=== PATIENT | male | born 1945 | race Caucasian/White ===

== ENCOUNTER 2017-03-22 06:07 | Day surgery (SDC) | payer MEDICARE ==
[2017-03-15 15:25] VITALS: BMI 33.0
[~2017-03-22 06:07] MED LIST: LACTATED RINGERS 1,000 ML IV SCH; SODIUM CHLORIDE 0.9% 1,000 ML IV SCH
[2017-03-22 06:44] VITALS: PULSE 58; RESP 20; TEMP 97.7
[2017-03-22 06:51] LABS: INR 2.4 (<1.2); Prothrombin Time 21.6 sec (9.0-12.0)
[2017-03-22] MEDS ORDERED: PROPOFOL 10 MG/ML 20 ML VIAL IV ONE (07:14)
--- NOTE | 2017-03-22 08:12 | P.PCN ---
Preoperative Diagnosis: ICD interrogation with reprogramming ICD was interrogated P waves 3.7 mV atrial pacing impedance 400 ohms atrial pacing threshold 0.5 V at 0.5 ms. R waves 11.7 mV ventricular pacing impedance 501 ohms and pacing threshold 0.8 V at 0.5 ms. Shocking impedance 83 ohms DFT testing and anesthesia A shock on T-wave protocol was used to induce ventricular fibrillation. This was adequately and appropriately detected at least sensitivity. An 11 J shock was unsuccessful this time in regular polarity did at 21 J shock was successfully defibrillated the patient to sinus rhythm Charge time 3.6 seconds, shocking impedance 69 ohms initial polarity no post shock noise At the last evaluation is DFT was 11 J or below ICD interrogation with reprogramming ICD was reprogrammed appropriately with first cardioversion at 21 J and first defibrillation at 31 J and appropriate antitachycardia pacing. MADIT RIT parameters programmed Plan Recheck BMP today Increase metoprolol succinate to 150 mrem by mouth daily and reduce amlodipine to 2.5 mrem daily I'll of Dr. Khan in 6 weeks and follow-up in the device clinic in 4 months Disposition: same day
[2017-03-22 08:24] LABS: Anion Gap 7 mmol/L; Blood Urea Nitrogen 35 mg/dL (9-20); Calcium 8.9 mg/dL (8.4-10.2); Carbon Dioxide 23 mmol/L (22-30); Chloride 111 mmol/L (98-107); Glucose 100 mg/dL (74-99); Sodium 141 mmol/L (137-145)
[2017-03-22 09:24] VITALS: BP 151/83
== END 2017-03-22 09:24 | disposition home or self-care (01) ==
LOC: CATHEP 06:07
PROVIDERS: ATTEND Internal Medicine Clinical Cardiac Electrophysiology
DX: Z45.02 Encounter for adjustment and management of automatic implantable cardiac defibrillator (principal); I11.9 Hypertensive heart disease without heart failure; I42.9 Cardiomyopathy, unspecified; I49.01 Ventricular fibrillation; I48.1 Persistent atrial fibrillation; E78.5 Hyperlipidemia, unspecified; G47.33 Obstructive sleep apnea (adult) (pediatric); Z99.89 Dependence on other enabling machines and devices; Z87.442 Personal history of urinary calculi; Z79.01 Long term (current) use of anticoagulants; Z79.899 Other long term (current) drug therapy; Z88.8 Allergy status to other drugs, medicaments and biological substances
CPT/HCPCS: 93642; 80048; 85610; J2704

== ENCOUNTER → 2018-03-30 | Day surgery (SDC) | payer MEDICARE ==
[2018-03-28 11:58] VITALS: BMI 34.5
[~2018-03-30] MED LIST changes: -LACTATED RINGERS 1,000 ML IV SCH; +LIDOCAINE 1% INJ 10MG/ML (20 ML MDV) ONE; +PROPOFOL 10 MG/ML 20 ML VIAL IV ONE
[2018-03-30 07:15] VITALS: RESP 18; TEMP 97.7
[2018-03-30 07:40] LABS: INR 2.6 (<1.2); Prothrombin Time 24.8 sec (9.0-12.0)
--- NOTE | 2018-03-30 08:23 | PCN ---
PROCEDURE NOTE Mr. Russo is a 72-year-old male patient who has nonischemic cardiomyopathy with noncompaction cardiomyopathy and sustained a cardiac arrest with VF and hence the ICD was placed. Ejection fraction was reduced. Initial implant at DFT was at 11 joules. Subsequently, last year the DFT was noted to be at 21 joules while the 11 joules failed. He was brought in again for DFT testing after a year to see if there was any change in his defibrillation level. He has a [employer] device. This is a [employer] ICD D153, serial #[id number], adequate battery life and the P waves at 3 mV. Pacing impedance in the atrium is 410 ohms, pacing threshold 0.6 V at 0.5 milliseconds. The RV pacing threshold is 0.7 V at 0.5 milliseconds, pacing impedance of 519 ohms and R-wave 15 mV. Shocking impedance 82 ohms. Shock and T-wave protocol was used to induce ventricular fibrillation. This was adequately and appropriately detected at least sensitivity but a 14 joule shock failed. Charge time 2.4 seconds. Shocking impedance 72 ohms in initial polarity. Subsequently a 21 joule shock was successful. Charge time of 3.5 seconds. Shocking impedance 70 ohms initial polarity. No post shock noise. IMPRESSION: DFT stable but at 21 joules, last year the 11 joule failed; this year 14 joule shock failed. SUGGEST: Continue heart failure medications. The patient is also on amiodarone. This is most likely the effect of amiodarone even though it is a very low dose and it is quite likely that amiodarone is contributing to this elevation DFT, even though it is at a low dose of 100 mg a day and he has not had any ventricular arrhythmias or VF. Metoprolol succinate, spironolactone and losartan will be continued. The patient is allergic to ATORVASTATIN. MMODL / IJN: [id number] /
[2018-03-30 09:02] VITALS: PULSE 50
[2018-03-30 09:04] VITALS: BP 125/84
== END | disposition home or self-care (01) ==
LOC: CATHEP 06:11
PROVIDERS: ATTEND Internal Medicine Clinical Cardiac Electrophysiology
DX: I42.8 Other cardiomyopathies (principal); Z45.02 Encounter for adjustment and management of automatic implantable cardiac defibrillator; Z86.74 Personal history of sudden cardiac arrest; I49.01 Ventricular fibrillation; I11.0 Hypertensive heart disease with heart failure; I50.9 Heart failure, unspecified; E78.5 Hyperlipidemia, unspecified; I49.9 Cardiac arrhythmia, unspecified; I48.1 Persistent atrial fibrillation; Z79.01 Long term (current) use of anticoagulants; Z79.899 Other long term (current) drug therapy; Z88.8 Allergy status to other drugs, medicaments and biological substances
CPT/HCPCS: 93642; 85610; J2001; J2704

== ENCOUNTER 2018-12-11 06:25 | Emergency (ER) | payer MEDICARE ==
[2018-12-11] MEDS ORDERED: LIDOCAINE/EPINEPHR/TETRACAINE 5 ML BOTTLE TOPICAL ONE (06:28)
[2018-12-11] MEDS ORDERED: OXYMETAZOLINE 0.05% NASL SPRAY 1 SPRAY BOTTLE NASAL STA (06:28)
[2018-12-11 06:35] VITALS: RESP 18
[2018-12-11] MEDS: SILVER NITRATE APPLICATOR 1 EACH STICK..EA. TOPICAL STA ×2 (06:39→07:43)
--- NOTE | 2018-12-11 06:59 | ED ---
ENT HPI - General Chief complaint: ENT Stated complaint: Spontaneous Nose Bleed Time Seen by Provider: 12/11/18 06:28 Source: patient, RN notes reviewed, old records reviewed Mode of arrival: ambulatory Limitations: no limitations - History of Present Illness Initial comments: Patient is a 73-year-old male presents emergency room today for evaluation for nosebleed. Symptoms started approximately one hour ago. Patient reports he is on Coumadin for history of A. fib. Patient reports that his sore throat and some upper respiratory symptoms yesterday. Patient denies any specific fevers or chills. He states his Coumadin levels last checked on the of this month. Patient states that he's had some swallowing of blood. - Related Data Home Medications Medication Instructions Recorded Confirmed Losartan [Cozaar] 50 mg PO DAILY 10/04/14 03/30/18 Timolol 0.5% Ophth Soln [Timoptic 1 drop BOTH EYES QAM 10/04/14 03/28/18 0.5% Ophth Soln] Warfarin [Coumadin] 7.5 mg PO DIRECTED 10/04/14 03/30/18 Amiodarone [Cordarone] 100 mg PO DAILY 01/16/15 03/30/18 Metoprolol Succinate [Toprol XL] 100 mg PO DAILY 03/28/18 03/30/18 Warfarin Sodium [Coumadin] 3.75 mg PO DIRECTED 03/28/18 03/30/18 Previous Rx's Medication Instructions Recorded Spironolactone [Aldactone] 25 mg PO DAILY #30 tab 11/28/14 amLODIPine [Norvasc] 2.5 mg PO DAILY #30 tablet 03/22/17 Sodium Chloride [Saline Nasal 1 spray EA NOSTRIL TID #1 bottle 12/11/18 Meredith] Allergies Allergy/AdvReac Type Severity Reaction Status Date / Time rivaroxaban [From Xarelto] Allergy Rash/Hives Verified 12/11/18 06:35 atorvastatin [From Lipitor] AdvReac Unknown Verified 12/11/18 06:35 Review of Systems ROS Statement: Those systems with pertinent positive or pertinent negative responses have been documented in the HPI. ROS Other: All systems not noted in ROS Statement are negative. Past Medical History Past Medical History: Cancer, Osteoarthritis (OA), Pneumonia, Prostate Disorder, Sleep Apnea/CPAP/BIPAP Additional Past Medical History / Comment(s): BACK PAIN, HX OF KIDNEY STONES, RT ARM -BASAL CELL CANCER, SEE Dr King H & P. History of Any Multi-Drug Resistant Organisms: None Reported Past Surgical History: AICD, Cardiac Ablation, Hernia Repair, Joint Replacement, Orthopedic Surgery, Tonsillectomy Additional Past Surgical History / Comment(s): HARI KNEE AND HIP REPLACEMENTS, INGUINAL HERNIA, KIDNEY STONES,BLADDER STONES,CARPAL TUNNEL RT HAND 12-12-14 DUAL CHAMBER DEFIBRILLATOR IMPLANTED-,cardiac ablation x2,RK hari eyes Past Anesthesia/Blood Transfusion Reactions: Motion Sickness Additional Past Anesthesia/Blood Transfusion Reaction / Comment(s): STATES VERY SENSITIVE TO MEDICATION. Type of Cardiac Device: AICD Device Placement Date:: 2014 [employer] Past Psychological History: No Psychological Hx Reported Smoking Status: Former smoker Past Alcohol Use History: None Reported Past Drug Use History: None Reported - Past Family History Mother History Unknown: Yes Family Medical History: Hypertension Father History Unknown: Yes Family Medical History: CVA/TIA, Myocardial Infarction (DE) General Exam - General Exam Comments Initial Comments: 73-year-old male. Alert and oriented. Limitations: no limitations General appearance: alert, in no apparent distress Head exam: Present: atraumatic, normocephalic, normal inspection Eye exam: Present: normal appearance, PERRL, EOMI. Absent: scleral icterus, conjunctival injection, periorbital swelling ENT exam: Present: normal exam, normal oropharynx, mucous membranes moist, TM's normal bilaterally, other (Patient has any evidence of anterior epistaxis from the left nare. ) Neck exam: Present: normal inspection, other (No bleeding in posterior oropharynx.). Absent: tenderness, meningismus, lymphadenopathy Respiratory exam: Present: normal lung sounds bilaterally. Absent: respiratory distress, wheezes, rales, rhonchi, stridor Cardiovascular Exam: Present: regular rate, normal rhythm, normal heart sounds. Absent: systolic murmur, diastolic murmur, rubs, gallop, clicks GI/Abdominal exam: Present: soft, normal bowel sounds. Absent: distended, tenderness, guarding, rebound, rigid Back exam: Present: normal inspection Neurological exam: Present: alert, oriented X3, CN II-XII intact Psychiatric exam: Present: normal affect, normal mood Skin exam: Present: warm, dry, intact, normal color. Absent: rash Course Vital Signs 10/28/19 06:33 Temperature 97.7 F Pulse Rate 59 L Respiratory 18 Rate Blood Pressure 143/94 O2 Sat by Pulse 99 Oximetry Medical Decision Making - Medical Decision Making Patient 73-year-old male history of spontaneous nosebleed from the left near. Arriving to the ED at since slowed down but did complaint of some anterior epistaxis continuing. Apply lidocaine with epinephrine, Afrin sprays. Patient did have a small anterior nosebleed, he has nasal cautery with silver nitrate. We did check labs. Hemoglobin is stable 13.5. His INR is within normal limits of 2.5. Discussed taking Coumadin. After silver nitrate is applied Patient was monitored in the ER for 30 minutes. No further nosebleeds. Discussed using nasal saline spray, and antibiotic ointment over the nares. I discussed Patient can follow-up with primary care doctor. All questions are answered. - Lab Data Result diagrams: 12/11/18 07:04 Lab Results 12/11/18 12/11/18 Range/Units 07:04 07:04 WBC 9.8 (3.8-10.6) k/uL RBC 4.60 (4.30-5.90) m/uL Hgb 13.5 (13.0-17.5) gm/dL Hct 39.8 (39.0-53.0) % MCV 86.4 (80.0-100.0) fL MCH 29.4 (25.0-35.0) pg MCHC 34.1 (31.0-37.0) g/dL RDW 13.6 (11.5-15.5) % Plt Count 237 (150-450) k/uL Neutrophils % 76 % Lymphocytes % 14 % Monocytes % 7 % Eosinophils % 2 % Basophils % 1 % Neutrophils # 7.4 (1.3-7.7) k/uL Lymphocytes # 1.3 (1.0-4.8) k/uL Monocytes # 0.7 (0-1.0) k/uL Eosinophils # 0.2 (0-0.7) k/uL Basophils # 0.1 (0-0.2) k/uL PT 24.6 H (9.0-12.0) sec INR 2.5 H (<1.2) APTT 37.8 H (22.0-30.0) sec Disposition Clinical Impression: Anterior epistaxis Disposition: HOME SELF-CARE Condition: Good Instructions (If sedation given, give patient instructions): Nosebleed (ED) Additional Instructions: Please use medication as discussed. If any further nosebleeds starts, use the nasal spray, and use the nasal clamp for 30 minutes. Please follow up with family doctor if symptoms have not improved over the next two days. Please return to the emergency room if your symptoms increase or worsen or for any other concerns. Prescriptions: Sodium Chloride [Saline Nasal Meredith] 1 spray EA NOSTRIL TID #1 bottle Is patient prescribed a controlled substance at d/c from ED?: No Referrals: Josias Higgins MD [Primary Care Provider] - 1-2 days Abner Reyna DO [Doctor of Osteopathic Medicine] - 1-2 days Time of Disposition: 07:48
[2018-12-11 07:13] LABS: Basophils # (A) 0.1 k/uL (0-0.2); Basophils % (A) 1 %; Eosinophils # (A) 0.2 k/uL (0-0.7); Eosinophils % (A) 2 %; HCT 39.8 % (39.0-53.0); HGB 13.5 gm/dL (13.0-17.5); Lymphocytes # (A) 1.3 k/uL (1.0-4.8); Lymphocytes % (A) 14 %; MCH 29.4 pg (25.0-35.0); MCHC 34.1 g/dL (31.0-37.0); MCV 86.4 fL (80.0-100.0); Mean Platelet Volume 5.9; Monocytes # (A) 0.7 k/uL (0-1.0); Monocytes % (A) 7 %; Neutrophils # (A) 7.4 k/uL (1.3-7.7); Neutrophils % (A) 76 %; Platelet Count 237 k/uL (150-450); RDW 13.6 % (11.5-15.5); WBC 9.8 k/uL (3.8-10.6)
[2018-12-11 07:22] LABS: INR 2.5 (<1.2); Partial Thromboplastin Time 37.8 sec (22.0-30.0); Prothrombin Time 24.6 sec (9.0-12.0)
[2018-12-11 08:29] VITALS: BP 139/79; PULSE 71; TEMP 98
== END 2018-12-11 08:29 | disposition home or self-care (01) ==
LOC: EC 06:25
DX: R04.0 Epistaxis (principal); I48.91 Unspecified atrial fibrillation; G47.30 Sleep apnea, unspecified; Z79.01 Long term (current) use of anticoagulants; Z79.899 Other long term (current) drug therapy; Z88.8 Allergy status to other drugs, medicaments and biological substances; Z85.828 Personal history of other malignant neoplasm of skin; Z99.89 Dependence on other enabling machines and devices; Z96.653 Presence of artificial knee joint, bilateral; Z87.891 Personal history of nicotine dependence; Z96.643 Presence of artificial hip joint, bilateral; Z95.810 Presence of automatic (implantable) cardiac defibrillator
CPT/HCPCS: 30901; 36415; 85025; 85610; 85730; 99284

== ENCOUNTER → 2020-07-22 | Outpatient (CLI) | payer MEDICARE | CPT/HCPCS: 94060; 94726; 94729 ==

== ENCOUNTER → 2021-08-10 | Outpatient (CLI) | payer MEDICARE ==
--- NOTE | 2021-08-10 15:55 | US ---
EXAMINATION TYPE: US kidneys/renal and bladder DATE OF EXAM: 08/10/2021 COMPARISON: NONE CLINICAL HISTORY: R31.0 GROSS HEMATURIA. Hematuria EXAM MEASUREMENTS: Right Kidney: 11.0 x 5.7 x 5.3 cm Left Kidney: 11.3 x 5.1 x 5.8 cm Right Kidney: 2 simple appearing cysts seen in kidney. Largest was in superior pole measuring 4.3 x 5 .0 x 3.9 cm. Left Kidney: 2 simple appearing cysts seen in kidney. Largest was in superior pole measuring 3.4 x 3. 5 x 2.9 cm Bladder: Echogenic foci seen measuring 1.8 x 1.6 x 0.8 cm Bilateral Jets seen: No Prostate was seen measuring 6.3 x 5.8 x 4.7 cm IMPRESSION: 1. Urinary bladder calcification. 2. Simple appearing bilateral renal cysts.
== END | disposition home or self-care (01) ==
LOC: RADUSWWP 14:06
PROVIDERS: ATTEND Urology
DX: N28.1 Cyst of kidney, acquired (principal); N32.89 Other specified disorders of bladder
CPT/HCPCS: 76770

== ENCOUNTER → 2021-11-23 | Outpatient (CLI) | payer MEDICARE ==
[2021-11-23 09:27] LABS: INR 1.1 (<1.2); Prothrombin Time 11.7 sec (9.0-12.0)
[2021-11-23 15:16] LABS: Basophils # (A) 0.04 X 10*3/uL (0.00-0.10); Basophils % (A) 0.5 %; Eosinophils # (A) 0.07 X 10*3/uL (0.04-0.35); Eosinophils % (A) 0.8 %; HCT 44.7 % (39.6-50.0); HGB 14.6 g/dL (13.0-17.0); Immature Grans, Automated 0.4 %; Lymphocytes # (A) 2.45 X 10*3/uL (0.90-5.00); Lymphocytes % (A) 29.7 %; MCH 28.5 pg (27.0-32.0); MCHC 32.7 g/dL (32.0-37.0); MCV 87.1 fL (80.0-97.0); Mean Platelet Volume 9.6 fL (9.5-12.2); Monocytes # (A) 0.71 X 10*3/uL (0.20-1.00); Monocytes % (A) 8.6 %; NRBC Per 100 WBC 0 /100 WBCS (0.0-0.0); Neutrophils # (A) 4.94 X 10*3/uL (1.80-7.70); Platelet Count 251 X 10*3/uL (140-440); RBC 5.13 X 10*6/uL (4.40-5.60); RDW 13.1 % (11.5-14.5); WBC 8.24 X 10*3/uL (4.50-10.00)
[2021-11-23 15:26] LABS: ALT 14 U/L (10-49); AST 20 U/L (14-35); African American GFR (CKD) 64.1 (60.0-200.0); Albumin 4.5 g/dL (3.8-4.9); Alkaline Phosphatase 109 U/L (41-126); BUN/Creat Ratio 19.52 Ratio (12.00-20.00); Blood Urea Nitrogen 24.2 mg/dL (9.0-27.0); Calcium 9.4 mg/dL (8.7-10.3); Carbon Dioxide 24.4 mmol/L (20.0-27.5); Chloride 104 mmol/L (96-109); Chol/HDL Ratio 7.51 Ratio; Globulin 2.6 g/dL (1.6-3.3); Glucose 99 mg/dL (70-110); LDL Cholesterol,Calculated 217.2 mg/dL (0.0-131.0); Non-African American GFR(CKD) 55.3 (60.0-200.0); Potassium 4.2 mmol/L (3.5-5.5); Sodium 140 mmol/L (135-145); Total Protein 7.1 g/dL (6.2-8.2)
== END | disposition home or self-care (01) ==
LOC: LABWHC1 08:39
PROVIDERS: ATTEND Internal Medicine
DX: I48.0 Paroxysmal atrial fibrillation (principal)
CPT/HCPCS: 36415; 80053; 80061; 84443; 85025; 85610

== ENCOUNTER 2024-08-06 19:40 | Outpatient (CLI) | payer MEDICARE ==
--- NOTE | 2024-08-14 14:16 | P.PCN ---
Date of Procedure: 08/06/24 Operative Findings: Polysomnography report History This is a case of obstructive sleep apnea, mild to moderate in severity based on a previous sleep study that was done in 2012 and the patient was found to have an AHI of 50. The patient was successfully treated with BiPAP and the patient has a VPAP auto machine. The patient has an extensive cardiac history, nonischemic cardiomyopathy, A-fib and the patient has a defibrillator in place and the patient is postcardiac arrest. The patient has been successfully treated in the past and during his last visit, we noted some residual obstructive and central events while being on a BiPAP. Note that at that time, he was in the EPAP minimum of 4 and a maximum pressure of 14 and a pressure support of 30. Based on that, I dropped the maximum pressure down to 12 due to concerns of evaluation of central apneas. I also moved his pressure support up to 4. His compliance data showed that the patient has been averaging pressures of 11.7/7.2 and a leak of 50 L/min with a minute ventilation of 7.4 and a tidal volume of 450. However, his AHI was still elevated at 22 with a central apnea index of 0.2. He obviously started having increasing obstructive respiratory events with the pressure change. I subsequently, changed his settings and he was started on a EPAP minimum of 4 and a maximum of 18 and a pressure support of 4. With this current setting, the patient was averaging around 6.7 hours of machine use per night and his 95th percentile pressures were 13.9/9.3 with a leak of 40 L/min and a tidal volume of 450 and a minute ventilation of 6.9. Nevertheless, his AHI remains elevated at 18.6 with a central apnea index of 30. In the interim, the patient's cardiac rhythm has remained paced and his CHF has been optimized. He has been losing weight and his weight was down to 208 pounds with a body mass index of 29.8. He felt that the BiPAP pressures were quite high and affecting his ability to tolerate the treatment. Based on all this, I requested a reevaluation and based on that, the patient is coming in for another polysomnography Physical findings The weight is 208 with a body mass index of 29.8 Technical description The patient was studied using a standard complex polysomnography protocol that included recording of the Lead II EKG, Central, occipital and frontal EEG, right and left outer canthus EOG, submental EMG, right and left anterior tibialis EMG, respiratory airflow by thermocouple and or pressure/flow transducer, respiratory efforts by abdominal and thoracic PVDF belts, oxygen saturation by cable oximetry. Position by observation synchronized the PSG. Equipment used: [employer]. Sleep architecture The total recording duration was 422.5 minutes. The total sleep time was 261.5 minutes. The wake after sleep onset time was 133 minutes. The overall sleep efficiency was 61.9%. Related to sleep onset was 27.5 minutes and the sleep architecture was catheterized by 28.9% stage I, 64.8% stage II, 0% stage III and a total of 6.3% REM sleep. The total arousal index was 18.1 Respiratory analysis The patient had a total of 220 obstructive events of which 65 were obstructive, 0 were mixed and 155 were hypopneas. The resulting apnea hypopnea index was elevated at 49.3 consistent with severe obstructive sleep apnea. Note that, the recording was done essentially patient being in a nonsupine body position. The patient also encountered the brief REM. No central apneas were noted. Oxygenation analysis The patient had a baseline pulse ox of 93% while awake. Lowest oxygen saturation was 73% and the patient continues to have significant nocturnal oxygen desaturation and the patient spent approximately 84 minutes of the sleep time below pulse ox of 89% and this accounts for 20% of the overall recording duration. Arousal events A total of 79 arousals with an index of 18.1. The respiratory arousal index was 9.2 Periodic limb movement activity None Cardiac summary Rhythm was sinus with occasional PVCs. Average heart rate was 51. Assessment Severe obstructive sleep apnea with an AHI of 49.3. The patient has failed BiPAP therapy. The patient was having residual obstructive events at the lower BiPAP pressures and the patient emergent to having central events at higher BiPAP settings. Severe nocturnal oxygen desaturation with a minimum pulse ox of 73% History of atrial fibrillation Nonischemic cardiomyopathy Hypertension Hyperlipidemia Previous history of cardiac arrest. Plan Based on the complex nature of this case, the patient will get him in to undergo an in lab BiPAP titration. During the titration, our goal should be to diminish the obstructive respiratory events while having no central events emerging. Will keep the same mask interface. Will make final recommendations on his BiPAP settings based on the titration to be performed in the lab.
== END 2024-08-07 05:40 | disposition home or self-care (01) ==
LOC: 3 N SLEEP 19:40
PROVIDERS: ATTEND Internal Medicine Critical Care Medicine
DX: G47.33 Obstructive sleep apnea (adult) (pediatric) (principal); I10 Essential (primary) hypertension; E78.5 Hyperlipidemia, unspecified; I42.8 Other cardiomyopathies; I48.91 Unspecified atrial fibrillation; Z99.89 Dependence on other enabling machines and devices; Z86.74 Personal history of sudden cardiac arrest; Z86.79 Personal history of other diseases of the circulatory system; Z88.8 Allergy status to other drugs, medicaments and biological substances; Z87.891 Personal history of nicotine dependence
CPT/HCPCS: 95810